=== PATIENT | male | born 1980 | race Caucasian/White ===

== ENCOUNTER 2016-05-02 13:27 | Emergency (ER) | payer OTHER ==
[~2016-05-02] VITALS: Ht 180.3 cm; Wt 140.6 kg
--- NOTE | 2016-05-02 13:47 | ED AMS/SEIZURE/WEAK/DIZZY ---
History of Present Illness General Chief Complaint: Seizure Stated Complaint: BIBA WITH SEIZURE Source: patient, old records Exam Limitations: no limitations Vital Signs & Intake/Output Vital Signs & Intake/Output Vital Signs Date Time Temp Pulse Resp B/P Pulse O2 O2 Flow FiO2 Ox Delivery Rate 05/02 1504 97.8 86 16 108/69 97 Room Air 05/02 1345 Room Air 05/02 1339 97.9 88 16 117/74 97 Room Air Allergies Coded Allergies: Sulfa (Sulfonamide Antibiotics) (UNKNOWN, CHILDHOOD ALLERGY 05/02/16) Reconcile Medications Divalproex Sodium (Depakote) 500 MG TABLET. 1 TAB PO DIRECTED (Reported) Triage Note: [place] [employer] WITNESSED [place]IZ[place]. PT HAS HX OF SEIZURES, TAKES DEPAKOTE. DIDN'T TAKE LAST PM OR THIS AM DOSE BECAUSE HE FORGOT. LAST SEIZURE WITHIN 5 YEARS BUT UNKNOWN OF DATE. PT STATES HE'S BEEN LIVING IN A MOTEL AND IN AND OUT OF HOUSING. UPON ARRIVAL PT A+OX4, OFFERS NO COMPLAINTS Triage Nurses Notes Reviewed? yes Onset: Abrupt Duration: minute(s): (1), better, resolved prior to arrival Timing: single episode today Severity: mild, moderate Severity Numbers: 3 No Modifying Factors: none Associated Symptoms: DENIES HPI: 36-year-old male with history of seizure disorder on Depakote after he had a witnessed seizure [place] the movie theater just prior to arrival. On arrival patient denies any complaints. He states his last seizure was several years ago and that he forgot to take his dose of Depakote last night and this morning. He states he does have this medication at home he denies headache nausea vomiting no neck or back pain chest pain fevers or chills. There are no modifying factors or associated symptoms otherwise. (RADHA HARKINS) Past History Travel History Traveled to [place] past 21 day No Medical History Any Pertinent Medical History? see below for history Neurological: seizure Surgical History Surgical History: none Psychosocial History What is your primary language Trinidadian Tobacco Use: Never used ETOH Use: denies use Illicit Drug Use: denies illicit drug use Family History Hx Contributory? No (RADHA HARKINS) Review of Systems Review of Systems Constitutional: Reports: see HPI. All Other Systems: Reviewed and Negative Comments Review of systems: See HPI, All other systems negative. Constitutional, no chills no fever, no malaise HEENT: No visual changes no sore throat no congestion, Cardiovascular: No chest pain , no palpitation , Skin, no rashes, no change in skin Respiratory: No dyspnea no cough no sputum GI: No nausea no vomiting, no diarrhea, : No dysuria Muscle skeletal: No joint pain, no back pain, no neck pain, Neurologic: no headache Psych: No stress Heme/endocrine: No bruising no bleeding Immunology: No lymphadenopathy (RADHA HARKINS) Physical Exam Physical Exam General Appearance: well developed/nourished, no apparent distress, alert, awake Comments: Well-developed well-nourished person in no acute distress HEENT: Normal EENT exam; PERRL, EOMI, no nystagmus. HEAD is atraumatic. moist mucous membranes. No dental trauma no tongue laceration is a superficial abrasion noted to the right lower chin the rest of face is atraumatic Neck: Supple, nontender normal range of motion Back: Nontender, no CVA tenderness. Full range of motion Cardiovascular: Regular rate and rhythms no murmurs rubs Respiratory: Chest nontender.There were no bony deformities, no asymmetry. No respiratory distress. Patient speaking in full complete sentences. Breath sounds clear to auscultation bilaterally: NO W/R/R Abdomen: Soft, nontender nondistended, Extremity: No edema, full range of motion of extremities Neuro: Alert oriented x3, motor sensory normal, There were no obvious focal neurologic abnormalities. Skin: No appreciable rash on exposed skin, skin is warm and dry. Psych: Mood and affect is normal, memory and judgment is normal. Core Measures ACS in differential dx? No CVA/TIA Diagnosis: No Severe Sepsis Present: No Septic Shock Present: No (RADHA HARKINS) Progress Differential Diagnosis: alcohol intoxication, anemia, dehydration, electrolyte imbalance, GI bleed, hypoglycemia, postural hypotension, seizure disorder, subarachnoid Hem. Plan of Care: Orders Procedure Date/time Status Regular Diet 05/02 D Active ETHANOL 05/02 1346 Complete DEPAKOTE LEVEL 05/02 1346 Complete CBC WITHOUT DIFFERENTIAL 05/02 1346 Complete BASIC METABOLIC PANEL 05/02 1346 Complete Laboratory Tests 05/02/16 1411: Anion Gap 9, Estimated GFR > 60, BUN/Creatinine Ratio 14.3, Glucose 93, Calcium 9.3, CBC w Diff NO MAN DIFF REQ, RBC 5.39, MCV 80.6, MCH 27.0, RDW 16.6 H, MPV 10.6 H, Gran % 78.1 H, Lymphocytes % 12.6 L, Monocytes % 7.4, Eosinophils % 1.5, Basophils % 0.4, Absolute Granulocytes 3.6, Absolute Lymphocytes 0.6 L, Absolute Monocytes 0.3, Absolute Eosinophils 0.1, Absolute Basophils 0, PUBS MCHC 33.6, Valproic Acid < 10.0 L, Serum Alcohol < 10.0 Patient denies any complaints at this time labs ordered old records reviewed case d/w dr godoy 1515 pt feels well, d/w him his lab results and depakote level. Discussed the patient also is lab results need for close follow-up with his primary care physician neurologist on Thursday discussed with him the importance of taking his medication as prescribed, he is ambulatory here with steady gait he feels comfortable with discharge (RADHA HARKINS) Initial ED EKG: none (RADHA HARKINS) Departure Departure Time of Disposition: 1449 Disposition: HOME OR SELF CARE Condition: Stable Clinical Impression Primary Impression: Seizure Referrals: TRACIE CAPONE,MEE Howard Additional Instructions: Take your medication as prescribed. Follow with your primary care physician as well as your neurologist on Thursday return with any concerns Departure Forms: Customer Survey General Discharge Information (RADHA HARKINS) PA/LEVER MILLER Co-Sign Statement Statement: ED Attending supervision documentation- [] I saw and evaluated the patient. I have also reviewed all the pertinent lab results and diagnostic results. I agree with the findings and the plan of care as documented in the PA's/LEVER MILLER's documentation. [X] I have reviewed the ED Record and agree with the PA's/LEVER MILLER's documentation. [] Additions or exceptions (if any) to the PAs/LEVER MILLER's note and plan are summarized below: [] (MARIEL GODOY DO)
[2016-05-02 14:34] LABS: ABSOLUTE BASOPHIL COUNT 0 /CUMM (0.0-0.2); ABSOLUTE EOSINOPHIL COUNT 0.1 /CUMM (0.0-0.7); ABSOLUTE GRANULOCYTE CT 3.6 /CUMM (1.4-6.5); ABSOLUTE LYMPH COUNT 0.6 /CUMM (1.2-3.4); ABSOLUTE MONOCYTE COUNT 0.3 /CUMM (0.10-0.60); BASOPHIL % 0.4 % (0.0-2.0); EOSINOPHIL % 1.5 % (0-5); GRANULOCYTE % 78.1 % (42.2-75.2); HEMATOCRIT 43.5 % (42-52); MEAN CORPUSCULAR HGB CONC 33.6 G/DL (33.0-37.0); MEAN CORPUSCULAR VOLUME 80.6 FL (80.0-94.0); MEAN PLATELET VOLUME 10.6 FL (7.4-10.4); PLATELET COUNT 137 /CUMM (130-400); RBC DISTRIBUTION WIDTH 16.6 % (11.5-14.5); RED BLOOD CELL CT 5.39 /CUMM (4.70-6.10); WHITE BLOOD CELL COUNT 4.6 /CUMM (4.8-10.8)
[2016-05-02 15:04] VITALS: BP 108/69
[2016-05-02] MEDS ORDERED: DEPAKOTE500 M1 PO (15:05)
== END 2016-05-02 15:13 ==
LOC: ERH 13:27
PROVIDERS: Physician Assistant Medical
DX: R56.9 Unspecified convulsions (principal)
CPT/HCPCS: G0480